=== PATIENT | female | born 1930 | race Caucasian/White ===

== ENCOUNTER 2017-03-17 10:19 | Inpatient (IN) | payer MEDICARE ==
[~2017-03-17] VITALS: Ht 167.6 cm; Wt 59.0 kg
[~2017-03-17 10:19] MED LIST: ACET-2605 PO; ACET-868 PO; ATOR20TA PO; BISA-79 GT; MELA1TAB25 PO; METO25TA3 PO; MIRT7.5T10 PO; NA P133E RC; ONDA4TAB5 PO; PANT40TA2 PO; SENN-18 PO; TRAM50TA2 PO
[2017-03-17 11:19] LABS: BASOPHILS # (AUTO) 0.1 /CMM (0.0-0.2); EOSINOPHILS # (AUTO) 0.1 /CMM (0.0-0.7); EOSINOPHILS % (AUTO) 2.3 % (0.0-6.0); HEMATOCRIT 45 % (33-45); HEMOGLOBIN 14.7 g/dL (11.5-14.8); LYMPHOCYTES # (AUTO) 1.2 /CMM (0.8-4.8); LYMPHOCYTES % (AUTO) 20.8 % (20.0-44.0); MEAN CORPUSCULAR HEMOGLOBIN 30 PG (26.0-33.0); MEAN CORPUSCULAR HGB CONC 33 g/dl (31.0-36.0); MEAN CORPUSCULAR VOLUME 92 fL (82-100); MONOCYTES # (AUTO) 0.8 /CMM (0.1-1.30); NEUTROPHILS # (AUTO) 3.3 /CMM (1.8-8.9); NEUTROPHILS % (AUTO) 61.9 % (43.0-81.0); PLATELET COUNT (AUTO) 166 /CMM (150-450); RDW COEFFICIENT OF VARIATION 12.8 (11.5-15.0); RED BLOOD CELL COUNT(AUTO) 4.88 MIL/uL (4.0-5.2); WHITE BLOOD COUNT (AUTO) 5.5 K/uL (4.3-11.0)
[2017-03-17] MEDS ORDERED: IV SET PRIMARY PUMP SET 1 EA INFUS.SET MC ONE ×2 (11:28→18:12)
[2017-03-17] MEDS ORDERED: IV NS 0.9% 1,000 ML ONE (11:28)
[2017-03-17 11:29] LABS: CALCIUM, SERUM 9.1 mg/dL (8.5-10.1); CARBON DIOXIDE 27 mmol/L (21-32); CHLORIDE 104 mmol/L (98-107); GLUCOSE 89 mg/dL (74-106); POTASSIUM 4.8 mmol/L (3.5-5.1); SODIUM SERUM 137 mmol/L (136-145); UREA NITROGEN, BLOOD 20 mg/dL (7-18)
[2017-03-17] MEDS ORDERED: IPRATROPIUM NEB FS 0.5 MG/2.5 ML AMPUL.NEB NEB ONE (11:30)
[2017-03-17] MEDS ORDERED: ALBUTEROL FS 2.5 MG/3 ML VIAL.NEB NEB ONE (11:30)
[2017-03-17] MEDS ORDERED: IV NS 0.9% 1,000 ML BAG IV ONE (11:30)
[2017-03-17 11:40] LABS: ALANINE AMINOTRANSFERASE 16 U/L (12-78); ALBUMIN 3.4 g/dL (3.4-5.0); ALKALINE PHOSPHATASE 79 U/L (46-116); ASPARTATE AMINOTRANSFERASE 18 U/L (15-37); B-TYPE NATRIURETIC PEPTIDE 570 PG/ML (0-125); BILIRUBIN,DIRECT 0.2 mg/dL (0.0-0.2); BILIRUBIN,TOTAL 0.7 mg/dL (0.2-1.0); TOTAL PROTEIN, SERUM 7.1 g/dL (6.4-8.2)
[2017-03-17 11:41] LABS: TROPONIN I 0.067 ng/mL (0.00-0.056)
[2017-03-17] MEDS ORDERED: IPRATROPIUM NEB FS 0.5 MG/2.5 ML AMPUL.NEB ONE (11:43)
[2017-03-17] MEDS ORDERED: ALBUTEROL FS 2.5 MG/0.5 ML VIAL.NEB ONE (11:43)
[2017-03-17] MEDS ORDERED: ASPIRIN 325 MG TABLET PO ONE (14:30)
[2017-03-17] MEDS ORDERED: FUROSEMIDE 40 MG/4 ML VIAL IV ONE (14:30)
[2017-03-17] MEDS ORDERED: FUROSEMIDE 40 MG/4 ML VIAL ONE (14:37)
[2017-03-17] MEDS ORDERED: ASPIRIN 325 MG TABLET ONE (14:37)
[2017-03-17 15:00] VITALS: BP 131/60
[2017-03-17] MEDS ORDERED: IPRATROPIUM NEB FS 0.5 MG/2.5 ML AMPUL.NEB NEB PRN (16:00)
[2017-03-17] MEDS ORDERED: NA PHOS,M-B/NA PHOS,DI-BA 1 EA ENEMA RC PRN ×2 (16:00→16:16)
[2017-03-17] MEDS ORDERED: ACETAMINOPHEN 325 MG TABLET PO PRN (16:00)
[2017-03-17] MEDS ORDERED: CEFTRIAXONE 1 G in IV D5W 50 ML IV SCH (16:00)
[2017-03-17] MEDS ORDERED: ACETAMINOPHEN ES 500 MG TABLET PO PRN (16:00)
[2017-03-17] MEDS ORDERED: TRAMADOL HCL 50 MG TABLET PO PRN (16:00)
[2017-03-17] MEDS ORDERED: CEFTRIAXONE 1 G in IV NS 0.9% 50 ML IV SCH (16:27)
[2017-03-17] MEDS ORDERED: ONDANSETRON 4 MG TAB.RAPDIS PO PRN (16:30)
[2017-03-17] MEDS ORDERED: SENNOSIDES 8.6 MG TABLET PO SCH (17:00)
[2017-03-17] MEDS ORDERED: IV NS 0.9% 250 ML IV ONE (18:12)
[2017-03-17] MEDS ORDERED: SECONDARY IV SET 1 EA INFUS.SET MC ONE (18:12)
[2017-03-17] MEDS: CEFTRIAXONE 1 G in IV NS 0.9% 50 ML IV SCH (18:25)
[2017-03-17 20:00] VITALS: BP 148/75
[2017-03-17] MEDS: ALBUTEROL HALF STRENGTH 1.25 MG/3 ML VIAL.NEB NEB SCH ×2 (20:15→23:30)
[2017-03-17] MEDS: IPRATROPIUM NEB FS 0.5 MG/2.5 ML AMPUL.NEB NEB SCH ×2 (20:15→23:30)
[2017-03-17] MEDS: MIRTAZAPINE 15 MG TABLET PO SCH (21:40)
[2017-03-17] MEDS: SENNOSIDES 8.6 MG TABLET PO SCH (21:42)
[2017-03-17] MEDS: HEPARIN SODIUM, PORCINE 5000 UNITS/1 ML VIAL SQ SCH (21:42)
[2017-03-17] MEDS ORDERED: Medication Not On Formulary EA (Melatonin/Pyridoxine HCl (B6) (Melatonin 10 mg Tablet) 1 PO SCH (22:00)
[2017-03-18] VITALS: BP 142/69
[2017-03-18] MEDS: ALBUTEROL HALF STRENGTH 1.25 MG/3 ML VIAL.NEB NEB SCH ×3 (02:34→10:55)
[2017-03-18] MEDS: IPRATROPIUM NEB FS 0.5 MG/2.5 ML AMPUL.NEB NEB SCH ×4 (02:34→20:19)
[2017-03-18 04:00] VITALS: BP 119/60
[2017-03-18 06:28] LABS: BASOPHILS % (AUTO) 0.2 % (0.0-2.0); EOSINOPHILS # (AUTO) 0.2 /CMM (0.0-0.7); EOSINOPHILS % (AUTO) 3.1 % (0.0-6.0); HEMATOCRIT 42 % (33-45); HEMOGLOBIN 14.2 g/dL (11.5-14.8); LYMPHOCYTES # (AUTO) 1.7 /CMM (0.8-4.8); LYMPHOCYTES % (AUTO) 29.8 % (20.0-44.0); MEAN CORPUSCULAR HEMOGLOBIN 31 PG (26.0-33.0); MEAN CORPUSCULAR HGB CONC 34 g/dl (31.0-36.0); MEAN CORPUSCULAR VOLUME 91 fL (82-100); MONOCYTES # (AUTO) 0.7 /CMM (0.1-1.30); MONOCYTES % (AUTO) 11.3 % (2.0-12.0); NEUTROPHILS # (AUTO) 3.3 /CMM (1.8-8.9); NEUTROPHILS % (AUTO) 55.6 % (43.0-81.0); PLATELET COUNT (AUTO) 129 /CMM (150-450); RDW COEFFICIENT OF VARIATION 13.2 (11.5-15.0); RED BLOOD CELL COUNT(AUTO) 4.57 MIL/uL (4.0-5.2); WHITE BLOOD COUNT (AUTO) 5.9 K/uL (4.3-11.0)
[2017-03-18 06:58] LABS: CALCIUM, SERUM 8.7 mg/dL (8.5-10.1); CARBON DIOXIDE 30 mmol/L (21-32); CHLORIDE 102 mmol/L (98-107); CREATININE 0.8 mg/dL (0.6-1.3); GLUCOSE 111 mg/dL (74-106); POTASSIUM 3.9 mmol/L (3.5-5.1); SODIUM SERUM 138 mmol/L (136-145); UREA NITROGEN, BLOOD 15 mg/dL (7-18)
[2017-03-18 08:00] VITALS: BP 131/72
[2017-03-18] MEDS: BISACODYL (5 MG) 5 MG TABLET.DR GT SCH ×2 (08:48→18:31)
[2017-03-18] MEDS: METOPROLOL SUCCINATE 25 MG TAB.SR.24H PO SCH (08:48)
[2017-03-18] MEDS: PANTOPRAZOLE 40 MG TABLET.DR PO SCH (08:48)
[2017-03-18] MEDS: HEPARIN SODIUM, PORCINE 5000 UNITS/1 ML VIAL SQ SCH ×2 (08:49→21:28)
[2017-03-18] MEDS ORDERED: DILTIAZEM HCL 30 MG TABLET PO SCH (09:00)
[2017-03-18] MEDS ORDERED: ATORVASTATIN 10 MG TABLET PO SCH (09:00)
[2017-03-18 12:00] VITALS: BP 103/56
[2017-03-18] MEDS: predniSONE 20 MG TABLET PO SCH (14:10)
[2017-03-18] MEDS: DILTIAZEM HCL 30 MG TABLET PO SCH (14:14)
[2017-03-18 15:48] VITALS: BP 117/57
[2017-03-18] MEDS: CEFTRIAXONE 1 G in IV NS 0.9% 50 ML IV SCH (17:01)
[2017-03-18] MEDS: ALBUTEROL HALF STRENGTH 1.25 MG/3 ML VIAL.NEB NEB PRN ×2 (17:02→20:19)
[2017-03-18] MEDS: GUAIFENESIN 300 MG/15 ML UDC PO PRN (18:26)
[2017-03-18 20:00] VITALS: BP 112/53
[2017-03-18] MEDS: SENNOSIDES 8.6 MG TABLET PO SCH (21:28)
[2017-03-18] MEDS: ATORVASTATIN 10 MG TABLET PO SCH (21:28)
[2017-03-18] MEDS: MIRTAZAPINE 15 MG TABLET PO SCH (21:29)
[2017-03-19] VITALS: BP 114/56
[2017-03-19] MEDS: IPRATROPIUM NEB FS 0.5 MG/2.5 ML AMPUL.NEB NEB SCH ×3 (01:30→12:49)
[2017-03-19 04:00] VITALS: BP 133/67
[2017-03-19 08:00] VITALS: BP 128/60
[2017-03-19] MEDS: BISACODYL (5 MG) 5 MG TABLET.DR GT SCH (10:40)
[2017-03-19] MEDS: DILTIAZEM HCL 30 MG TABLET PO SCH (10:40)
[2017-03-19] MEDS: predniSONE 20 MG TABLET PO SCH (10:40)
[2017-03-19] MEDS: PANTOPRAZOLE 40 MG TABLET.DR PO SCH (10:43)
[2017-03-19] MEDS: METOPROLOL SUCCINATE 25 MG TAB.SR.24H PO SCH (10:48)
[2017-03-19] MEDS: HEPARIN SODIUM, PORCINE 5000 UNITS/1 ML VIAL SQ SCH ×2 (10:51→21:03)
[2017-03-19 16:00] VITALS: BP 135/62
[2017-03-19] MEDS ORDERED: CEFTRIAXONE 1 G in IV D5W 50 ML IV SCH (18:00)
[2017-03-19 20:07] VITALS: BP 142/78
[2017-03-19] MEDS: MIRTAZAPINE 15 MG TABLET PO SCH (21:02)
[2017-03-19] MEDS: ATORVASTATIN 10 MG TABLET PO SCH (21:02)
[2017-03-19] MEDS: SENNOSIDES 8.6 MG TABLET PO SCH (21:02)
[2017-03-20 08:00] VITALS: BP 158/67
[2017-03-20] MEDS: PANTOPRAZOLE 40 MG TABLET.DR PO SCH (09:05)
[2017-03-20] MEDS: predniSONE 20 MG TABLET PO SCH (09:05)
[2017-03-20] MEDS: METOPROLOL SUCCINATE 25 MG TAB.SR.24H PO SCH (09:06)
[2017-03-20] MEDS: BISACODYL (5 MG) 5 MG TABLET.DR GT SCH (09:06)
[2017-03-20] MEDS: DILTIAZEM HCL 30 MG TABLET PO SCH (09:06)
[2017-03-20] MEDS: HEPARIN SODIUM, PORCINE 5000 UNITS/1 ML VIAL SQ SCH ×2 (09:07→21:48)
[2017-03-20] MEDS ORDERED: IPRATROPIUM NEB FS 0.5 MG/2.5 ML AMPUL.NEB NEB PRN (12:00)
[2017-03-20] MEDS ORDERED: ALBUTEROL HALF STRENGTH 1.25 MG/3 ML VIAL.NEB NEB PRN (13:00)
[2017-03-20] MEDS: GUAIFENESIN 300 MG/15 ML UDC PO PRN (13:27)
[2017-03-20] MEDS ORDERED: IPRATROPIUM NEB FS 0.5 MG/2.5 ML AMPUL.NEB NEB SCH (13:30)
[2017-03-20] MEDS ORDERED: HYDROCODONE BIT/HOMATROPINE 5 ML UDC PO PRN (15:30)
[2017-03-20 16:00] VITALS: BP 136/72
[2017-03-20] MEDS ORDERED: ALBUTEROL HALF STRENGTH 1.25 MG/3 ML VIAL.NEB NEB SCH (19:30)
[2017-03-20 20:00] VITALS: BP 134/66
[2017-03-20] MEDS: MIRTAZAPINE 15 MG TABLET PO SCH (21:47)
[2017-03-20] MEDS: SULFAMETH/TRIMETH 800/160 MG 1 UDTAB TABLET PO SCH (21:47)
[2017-03-20] MEDS: SENNOSIDES 8.6 MG TABLET PO SCH (21:47)
[2017-03-20] MEDS: ATORVASTATIN 10 MG TABLET PO SCH (21:48)
[2017-03-21 08:00] VITALS: BP 142/75
[2017-03-21] MEDS: HEPARIN SODIUM, PORCINE 5000 UNITS/1 ML VIAL SQ SCH (09:00)
[2017-03-21] MEDS: predniSONE 20 MG TABLET PO SCH (09:56)
[2017-03-21] MEDS: PANTOPRAZOLE 40 MG TABLET.DR PO SCH (09:57)
[2017-03-21] MEDS: DILTIAZEM HCL 30 MG TABLET PO SCH (09:57)
[2017-03-21] MEDS: BISACODYL (5 MG) 5 MG TABLET.DR GT SCH (09:57)
[2017-03-21] MEDS: SULFAMETH/TRIMETH 800/160 MG 1 UDTAB TABLET PO SCH (09:57)
[2017-03-21] MEDS: METOPROLOL SUCCINATE 25 MG TAB.SR.24H PO SCH (09:58)
[2017-03-21 13:09] VITALS: BP 139/64
== END 2017-03-21 15:30 | disposition home or self-care (01) | DRG 291 ==
LOC: ER 10:20 → TELE 15:39 → MED 03-19 10:50
PROVIDERS: ADMIT Internal Medicine; ATTEND Internal Medicine
DX: I11.0 Hypertensive heart disease with heart failure (principal); J15.9 Unspecified bacterial pneumonia; J12.9 Viral pneumonia, unspecified; I48.0 Paroxysmal atrial fibrillation; F03.90 Unspecified dementia, unspecified severity, without behavioral disturbance, psychotic disturbance, mood disturbance, and anxiety; I50.31 Acute diastolic (congestive) heart failure; K21.9 Gastro-esophageal reflux disease without esophagitis; J20.9 Acute bronchitis, unspecified; Z83.3 Family history of diabetes mellitus; Z79.899 Other long term (current) drug therapy; M81.0 Age-related osteoporosis without current pathological fracture; I25.10 Atherosclerotic heart disease of native coronary artery without angina pectoris; F32.9 Major depressive disorder, single episode, unspecified; Z96.649 Presence of unspecified artificial hip joint; R78.89 Finding of other specified substances, not normally found in blood; I87.2 Venous insufficiency (chronic) (peripheral); Z87.891 Personal history of nicotine dependence
CPT/HCPCS: 36415; 71020-TC; 71250-TC; 80048-TC; 80076-TC; 83880; 84484-TC; 85025-TC; 87040-TC; 87081-TC; 93307-TC; 94799-TC; 97001-TC; A4216; A4606; J0696; J1644; J1940; J7030; J7050; J7060; Z7610

== ENCOUNTER 2017-12-03 12:34 | Inpatient (IN) | payer MEDICARE ==
[~2017-12-03] VITALS: Ht 167.6 cm; Wt 69.9 kg
--- NOTE | 2017-12-03 12:45 | NUR ---
PRESENTS TO ER C/O LACERATION TO L EYEBROW S/P GLF, DENIES LOC, NECK, OR BACK PAIN. A/OX 4. BREATHING EVEN AND UNLABORED. NO SOB. VITALS STABLE. SAFETY AND COMFORT MEASURES IN PLACE. AWAITING MD ORDERS.
[2017-12-03] MEDS ORDERED: LIDOCAINE 1% INJ 50 ML MDV IJ ONE (13:00)
[2017-12-03] MEDS ORDERED: LIDOCAINE HCL/PF 1% 30 ML SDV ONE (13:17)
--- NOTE | 2017-12-03 13:19 | NUR ---
PATIENT SET UP FOR SUTURES PER ESSENCE DIAZ.
--- NOTE | 2017-12-03 13:38 | NUR ---
C-COLLAR APPLIED PER MD ORDERS.
--- NOTE | 2017-12-03 13:41 | NUR ---
PATIENT TAKEN TO CT VIA STRETCHER.
--- NOTE | 2017-12-03 13:55 | NUR ---
PATIENT RETURNED FROM CT IN STABLE CONDITION.
--- NOTE | 2017-12-03 15:10 | NUR ---
PATIENT TAKEN TO MRI VIA STRETCHER.
--- NOTE | 2017-12-03 16:03 | NUR ---
PATIENT RETURNED FROM MRI IN STABLE CONDITION.
--- NOTE | 2017-12-03 18:05 | NUR ---
NEW IV STARTED ON RAC, 20 G. BLOOD DRAWN AND SENT TO LAB PER MD ORDERS.
[2017-12-03 18:15] LABS: BASOPHILS # (AUTO) 0.2 /CMM (0.0-0.2); BASOPHILS % (AUTO) 2.5 % (0.0-2.0); EOSINOPHILS # (AUTO) 0.1 /CMM (0.0-0.7); EOSINOPHILS % (AUTO) 0.7 % (0.0-6.0); HEMATOCRIT 45 % (33-45); HEMOGLOBIN 15.5 g/dL (11.5-14.8); LYMPHOCYTES # (AUTO) 1.4 /CMM (0.8-4.8); LYMPHOCYTES % (AUTO) 15.5 % (20.0-44.0); MEAN CORPUSCULAR HEMOGLOBIN 31 PG (26.0-33.0); MEAN CORPUSCULAR HGB CONC 35 g/dl (31.0-36.0); MEAN CORPUSCULAR VOLUME 89 fL (82-100); MONOCYTES # (AUTO) 0.6 /CMM (0.1-1.30); MONOCYTES % (AUTO) 6.1 % (2.0-12.0); NEUTROPHILS # (AUTO) 6.8 /CMM (1.8-8.9); NEUTROPHILS % (AUTO) 75.2 % (43.0-81.0); PLATELET COUNT (AUTO) 152 /CMM (150-450); RDW COEFFICIENT OF VARIATION 12.6 (11.5-15.0); RED BLOOD CELL COUNT(AUTO) 4.98 MIL/uL (4.0-5.2); WHITE BLOOD COUNT (AUTO) 9.1 K/uL (4.3-11.0)
[2017-12-03 18:25] LABS: CALCIUM, SERUM 9.2 mg/dL (8.5-10.1); CARBON DIOXIDE 26 mmol/L (21-32); CHLORIDE 104 mmol/L (98-107); CREATININE 0.7 mg/dL (0.6-1.3); GLUCOSE 108 mg/dL (74-106); SODIUM SERUM 138 mmol/L (136-145); UREA NITROGEN, BLOOD 18 mg/dL (7-18)
[2017-12-03 18:37] LABS: INR 0.96 (0.85-1.15)
[2017-12-03] MEDS ORDERED: VIT1CAPS9 PO (18:49)
[2017-12-03] MEDS ORDERED: PARO10TA86 PO (18:49)
[2017-12-03] MEDS ORDERED: NAPR220T66 PO (18:49)
[2017-12-03] MEDS ORDERED: CHOL100044 PO (18:49)
[2017-12-03] MEDS ORDERED: DILT120T14 PO (18:49)
[2017-12-03] MEDS ORDERED: UBID100C13 PO (18:49)
[2017-12-03] MEDS ORDERED: CYAN500T4 PO (18:49)
[2017-12-03] MEDS ORDERED: SIME125T3 PO (18:49)
--- NOTE | 2017-12-03 19:04 | NUR ---
CALLED 'S OFFICE, CAMILLE GARCIA NP ROLL PRESS OPERATOR, LEFT MESSAGE ON VOICEMAIL
--- NOTE | 2017-12-03 19:36 | NUR ---
REPORT GIVEN TO CORRIE TSE FOR RESHMA.
--- NOTE | 2017-12-03 19:49 | NUR ---
ASSUMED CARE OF PT
--- NOTE | 2017-12-03 20:06 | NUR ---
REPORT GIVEN TO CARMENCITA TANG
[2017-12-03 20:21] VITALS: BP 138/73
--- NOTE | 2017-12-03 20:21 | NUR ---
MS RN NOTES RECEIVED PT FROM ER IN STABLE CONDITION, PT IS AWAKE, A/O X 4. NO DISTRESS, NOR SOB NOTED. RESPIRATION IS EVEN AND UNLABORED. PT WITH NO C/O PAIN OR DISCOMFORT AT THIS TIME. IV SITE ON RAC G # 20 INTACT AND PATENT, NO S/S OF INFILTRATION NOTED. SAFETY PRECAUTIONS OBSERVED. C COLLAR IN PLACE. ALL NEEDS ATTENDED AND MET. BODY CHECK DONE. KEPT COMFORTABLE. CALL LIGHT WITHIN REACH. WILL CONTINUE TO MONITOR. WILL CALL JOSE OBRIEN FOR ADMISSION ORDERS.
--- NOTE | 2017-12-03 21:00 | NUR ---
PLACED A CALL TO JOSE OBRIEN FOR ADMISSION ORDERS, AWAITING FOR CALL BACK.
--- NOTE | 2017-12-03 22:32 | NUR ---
PLACED A CALL TO JOSE OBRIEN, RECEIVED ADMISSION ORDERS , AND PER RESERVATION CLERK TO CONTINUE HOME MEDS, NOTED AND CARRIED OUT.
[2017-12-03] MEDS ORDERED: ATORVASTATIN 10 MG TABLET PO SCH (23:00)
[2017-12-03] MEDS ORDERED: MORPHINE SULFATE INJ 4 MG/ML DISP.SYRIN IV PRN (23:00)
[2017-12-03] MEDS ORDERED: SIMETHICONE 80 MG TAB.CHEW PO PRN (23:00)
[2017-12-03] MEDS ORDERED: PAROXETINE HCL 10 MG TABLET PO SCH (23:00)
[2017-12-03] MEDS: SENNOSIDES 8.6 MG TABLET PO SCH (23:15)
[2017-12-03] MEDS: ACETAMINOPHEN 325 MG TABLET PO PRN (23:17)
--- NOTE | 2017-12-03 23:42 | NUR ---
RECEIVED AN ORDER FROM JOSE OBRIEN TO INSERT VIERA CATHETER, NOTED AND CARRIED OUT. PER JOSE OBRIEN NO ORTHO CONSULT AT THIS TIME, PT NEEDS TO BE SEEN BY NEUROSURGEON TO ORDER A SPECIAL BRACE.
[2017-12-04] MEDS: ACETAMINOPHEN 325 MG TABLET PO PRN ×3 (05:41→21:12)
--- NOTE | 2017-12-04 06:49 | NUR ---
MS RN NOTES PT IN BED, RESTING COMFORTABLY. AROUSES EASILY, A/O X 4. NO DISTRESS, NOR SOB NOTED. RESPIRATION IS EVEN AND UNLABORED. PT WITH NO C/O PAIN OR DISCOMFORT AT THIS TIME. IV SITE ON RAC G # 20 INTACT AND PATENT, NO S/S OF INFILTRATION NOTED. SAFETY PRECAUTIONS OBSERVED. C COLLAR IN PLACE. ALL NEEDS ATTENDED AND MET. KEPT COMFORTABLE. CALL LIGHT WITHIN REACH. WILL ENDORSE TO NEXT SHIFT FOR RESHMA.
--- NOTE | 2017-12-04 07:30 | NUR ---
AM RN NOTE Received patient awake lying in her bed. Resp even and non-labored. C Collar in place. HL intact and patent. F/C intact and draining with yellow colored urine. Bed in low locked position. Will continue to monitor. Call light with in reach.
[2017-12-04 08:00] VITALS: BP 154/73
[2017-12-04] MEDS ORDERED: SIMETHICONE 80 MG TAB.CHEW PO PRN (09:30)
[2017-12-04] MEDS ORDERED: NAPROXEN 250 MG TABLET PO PRN (09:30)
[2017-12-04] MEDS: MULTIVITAMIN/LUTEIN/MINERALS 1 TAB PO SCH (10:49)
[2017-12-04] MEDS: DILTIAZEM HCL CD 120 MG PO SCH (10:50)
[2017-12-04] MEDS: CYANOCOBALAMIN 500 MCG TABLET PO SCH (10:50)
[2017-12-04] MEDS: CHOLECALCIFEROL 1,000 UNIT TABLET (VIT D3) PO SCH (10:50)
[2017-12-04] MEDS: METOPROLOL SUCCINATE 25 MG TAB.SR.24H PO SCH (10:50)
--- NOTE | 2017-12-04 15:20 | NUR ---
AM RN NOTE Pain re-assessed with 0/10 results.
[2017-12-04 16:00] VITALS: BP 146/70
--- NOTE | 2017-12-04 16:30 | NUR ---
AM RN NOTE Called Dr. James barrow and left msg in his exchange that his pt admitted to the unit.
[2017-12-04] MEDS: PAROXETINE HCL 10 MG TABLET PO SCH (17:17)
--- NOTE | 2017-12-04 17:45 | NUR ---
AM RN NOTE Called Dr. Ramirez left msg again.
--- NOTE | 2017-12-04 17:52 | NUR ---
AM RN NOTE Received call from Dr. James barrow made aware about pt admitted to the unit. Dr. James barrow also made aware that pt occ c/o having horizontal or vertical vision problems after the fall since yesterday. Pt denies any vision loss or double vision. Per Dr. James barrow this is not new and pt does have issues with her vision in past and NNO given by him at this time. Will continue to monitor. Pt denies any pain or vision problem at this time. C-collar in place. Addendum: 12/04/17 at 1807 by EVELINA MENCHACA RN ADD TO ABOVE ORDER Dr. Ramirez didn't order any physician consult orders at this time.
--- NOTE | 2017-12-04 18:24 | NUR ---
AM RN NOTE Pt resting in her bed, denies any pain at this time. Will endorse care to next shift.
--- NOTE | 2017-12-04 19:30 | NUR ---
MSRN FULLY AWAKE, WITH ASPEN CERVICAL COLLAR IN PLACE. STATES HAS SLIGHT HEADACHE AND WILL TAKE TYLENOL AFTER LATE DINNER. ASSISTED ON DINNER BY MANAGER MOTOR. ATE 30% ONLY STATED UNCOMFORTABLE EATING WITH THE COLLAR. ADJUSTED PER PATIENTS' COMFORT.NO SOB, ADMITTS GETTING ANXIOUS. ELEVATED BP, WILL RECHECK BP . VIERA TO GRAVITY FAIR AMOUNT OF URINE OUTPUT. ALL NEEDS ATTENDED, CLOSELY WATCHED. CALL LIGHT USE REVIEWED WITH PATIENT WELL UNDERSTOOD.
[2017-12-04] MEDS: ATORVASTATIN 10 MG TABLET PO SCH (21:13)
[2017-12-04] MEDS: SENNOSIDES 8.6 MG TABLET PO SCH (21:13)
[2017-12-04 23:58] VITALS: BP 146/59
--- NOTE | 2017-12-05 00:42 | NUR ---
MSRN SLEEPING APPEARS COMFORTABLE
--- NOTE | 2017-12-05 01:18 | NUR ---
MSRN ASSISTED TO BSC, HAD SMALL BM. UNSTEADY GAIT. DENIES DIZZINESS . 02 MAINTAINED. HFR.
[2017-12-05] MEDS: ACETAMINOPHEN 325 MG TABLET PO PRN ×3 (03:23→21:42)
--- NOTE | 2017-12-05 07:01 | NUR ---
MSRN SLEEPING AT THIS TIME.
[2017-12-05 08:00] VITALS: BP 139/78
[2017-12-05] MEDS: CHOLECALCIFEROL 1,000 UNIT TABLET (VIT D3) PO SCH (09:47)
[2017-12-05] MEDS: METOPROLOL SUCCINATE 25 MG TAB.SR.24H PO SCH (09:47)
[2017-12-05] MEDS: MULTIVITAMIN/LUTEIN/MINERALS 1 TAB PO SCH (09:48)
[2017-12-05] MEDS: CYANOCOBALAMIN 500 MCG TABLET PO SCH (09:48)
[2017-12-05] MEDS: DILTIAZEM HCL CD 120 MG PO SCH (09:49)
--- NOTE | 2017-12-05 14:00 | NUR ---
RN NOTES: PER DR MENA, ORDER AN ASPEN ORTHOSIS CERVICAL COLLAR. CALLED [facility]. THEY WILL DELIVER. PER DR MENA, OK FOR PATIENT TO AMBULATE AND USE BEDSIDE COMMODE. HE ALSO ORDERED PHYSICAL THERAPY TO ASSESS PATIENT
--- NOTE | 2017-12-05 15:54 | NUR ---
RN NOTES: PER DR HARRINGTON DISCONTINUE VIERA CATHETER. ALSO, PER DR HARRINGTON, NO ANTICOAGULANTS AND NO DVT PUMPS
[2017-12-05 16:00] VITALS: BP 130/71
[2017-12-05] MEDS: PAROXETINE HCL 10 MG TABLET PO SCH (17:08)
--- NOTE | 2017-12-05 19:20 | NUR ---
RN NOTES: PATIENT RESTING IN BED. AOX4. NONLABORED BREATHING ON 2L NASAL CANNULA. DENIES PAIN, DENIES HEADACHES, DENIES CHEST PAIN, IV SITE ON RIGHT AC PATENT AND INTACT. PATIENT AMBULATED TO BEDSIDE COMMODE PER DR HUTCHISON ORDERS. WAS ABLE TO URINATE AFTER VIERA REMOVAL THAT WAS ORDERED BY DR HARRINGTON. TOLERATED REMOVAL WELL. PATIENT KEPT CLEAN AND DRY THROUGHOUT SHIFT . PATIENT REMAINED PERRLA DURING SHIFT, DENIED DIFFICULTY IN VISION, NO ONSET OF WEAKNESS, AND DENIED VERTIGO. NEW ASPEN ORTHOSIS BRACE ORDERED AND HAD TRAINED PROFESSIONAL ADJUST THE BRACE FOR THE PATIENT. BRACE ORDERED FROM [email or web address]. ABRASION ON LEFT ARM CLEANSED WITH NS AND COVERED. ENDORSED TO NEXT SHIFT
--- NOTE | 2017-12-05 19:25 | NUR ---
MS/RN OPENING NOTES PT RECEIVED AWAKE, SITTING UP IN BED. A/OX4. ON 2L O2 VIA NC, BREATHING EVEN AND UNLABORED. DENIES SOB OR PAIN AT THIS TIME. CERVICAL COLLAR ON, TO REMAIN ON AT ALL TIMES. IV TO LAC PATENT AND INTACT. BED IN LOW/LOCKED POSITION WITH CALL LIGHT IN REACH. SIDE RAILS UPX2. WILL CONTINUE TO MONITOR
[2017-12-05 20:00] VITALS: BP 143/61
[2017-12-05] MEDS: SENNOSIDES 8.6 MG TABLET PO SCH (21:35)
[2017-12-05] MEDS: ATORVASTATIN 10 MG TABLET PO SCH (21:35)
--- NOTE | 2017-12-06 06:50 | NUR ---
MS/RN CLOSING NOTES PT ASLEEP, EASILY AROUSABLE TO NAME. REMAINS ON 2L O2 VIA NC, BREATHING EVEN AND UNLABORED. DENIES SOB OR PAIN AT THIS TIME. PERRLA MAINTAINED DURING SHIFT. NO WEAKNESS, DIZZINESS OR EPISODES OF DISTORTED/HORIZONTAL VISION. CERVICAL COLLAR REMAINED ON AT ALL TIMES. IV TO RAC PATENT AND INTACT. ASSISTED PT TO BSC PRN. WOUND CARE PROVIDED. BED IN LOW/LOCKED POSITION WITH CALL LIGHT IN REACH. SIDE RAILS UPX2. NO SIGNIFICANT CHANGES OVERNIGHT. KEPT PT COMFORTABLE DURING SHIFT. ALL NEEDS MET. WILL ENDORSE TO DAY SHIFT RN.
[2017-12-06] MEDS ORDERED: MORPHINE SULFATE INJ 4 MG/ML DISP.SYRIN IV PRN (07:30)
--- NOTE | 2017-12-06 07:30 | NUR ---
MS/RN Patient received Patient received from mine shifter. Denies pain or discomfort at this time. remains with neck brace until reviewed by MD. Call light within reach, will continue to monitor and ensure safety.
[2017-12-06 08:00] VITALS: BP 140/70
[2017-12-06] MEDS: CYANOCOBALAMIN 500 MCG TABLET PO SCH (08:18)
[2017-12-06] MEDS: CHOLECALCIFEROL 1,000 UNIT TABLET (VIT D3) PO SCH (08:18)
[2017-12-06] MEDS: MULTIVITAMIN/LUTEIN/MINERALS 1 TAB PO SCH (08:18)
[2017-12-06] MEDS: DILTIAZEM HCL CD 120 MG PO SCH (08:19)
[2017-12-06] MEDS: METOPROLOL SUCCINATE 25 MG TAB.SR.24H PO SCH (08:19)
--- NOTE | 2017-12-06 08:31 | NUR ---
MS/RN Medications Morning medications administered as ordered, no problems swallowing.
--- NOTE | 2017-12-06 10:00 | NUR ---
MS/RN S/B Elidia CARDOZA Seen by Elidia sawyer ordered, patient to remain with aspen collar at all times.
[2017-12-06] MEDS: ACETAMINOPHEN 325 MG TABLET PO PRN ×3 (10:03→20:49)
--- NOTE | 2017-12-06 11:30 | NUR ---
MS/RN S/B Dr Stratton Seen by Dr Stratton - bedside debridement of left upper arm at bedside. New wound care orders given and carried out.
--- NOTE | 2017-12-06 11:36 | NUR ---
WOUND CARE CONSULT: PT PRESENTS WITH LARGE SKIN TEAR TO LEFT ARM, SUTURED LACERATION TO LEFT EYEBROW AREA AND DRY ABRASION TO RT SIDE OF HEAD. RECOMMENDATIONS MADE FOR WOUND CARE AND SKIN PROTECTION. DISCUSSED WITH NURSING STAFF. WILL SEE PRN. BOOTH IN AGREEMENT WITH PLAN OF CARE. Addendum: 12/06/17 at 1141 by KAYLENE RAMIREZ WNDNU Amended: Links added.
--- NOTE | 2017-12-06 14:58 | NUR ---
MS/RN S/B Dr Ramirez Seen by Dr Ramirez - MRA of brain ordered. Consent form signed and checklist completed. Dr Ramirez called to clarify order as to being with or without IV contrast. Per MD, that decision will be left to the desecration of the radiologist.
[2017-12-06 16:00] VITALS: BP 128/62
--- NOTE | 2017-12-06 16:00 | NUR ---
MS/RN S/B PT Seen by PT - able to ambulate 200 feet using FWW, safe to ambulate with nursing.
[2017-12-06] MEDS: PAROXETINE HCL 10 MG TABLET PO SCH (16:47)
[2017-12-06] MEDS: NEOMY SULF/BACITRAC ZN/POLY 15 GM TUBE TP SCH (16:47)
--- NOTE | 2017-12-06 19:30 | NUR ---
RN NOTE; RECEIVED PT IN BED AWAKE AND ALERT. BREATHING EVENLY. NO C/O PAIN OR DISCOMFORT AT THIS TIME. NECK COLLAR IN PLACE. L FOREHEAD LACERATION W/ INTACT STITCHES. NO DRAINAGE. NO S/S OF INFX. NEEDS ATTENDED. BED LOW LOCKED. CALL LIGHT WITHIN REACH. WILL CONT TO MONITOR ,
[2017-12-06 20:00] VITALS: BP_SYST 107; BP_SYST 123; BP_SYST 126; BP_DIAS 52; BP_DIAS 55; BP_DIAS 63
[2017-12-06] MEDS: SENNOSIDES 8.6 MG TABLET PO SCH (20:49)
[2017-12-06] MEDS: ATORVASTATIN 10 MG TABLET PO SCH (20:49)
--- NOTE | 2017-12-06 20:53 | NUR ---
TYLENOL 650MG GIVEN ORDERED FOR C/O HEAD AND NECK PAIN. PT ALSO REQUESTED TO TAKE HER NIGHT MEDICATIONS EARLY SO SHE CAN REST AND NOT TO BE DISTURBED.
[2017-12-07] MEDS: ACETAMINOPHEN 325 MG TABLET PO PRN ×3 (01:43→21:23)
--- NOTE | 2017-12-07 01:46 | NUR ---
TYLENOL GIVEN FOR C/O HEADACHE. WILL CONT TO MONITOR
--- NOTE | 2017-12-07 06:44 | NUR ---
PT IN BED SLEEPING, W/ NO C/O PAIN OR DISCOMFORT AT THIS TIME. NO S/S OF STROKE OR TIA NOTED. NO FACIAL DROOP OR SLURRED SPEECH. NO ACUTE EVENT DURING THE NIGHT. NEEDS ATTENDED . BED LOW LOCKED.C ALL LIGHT WITHIN REACH. WILL CONT TO MONITOR AND WILL ENDORSE TO DAY SHIFT FOR RESHMA.
--- NOTE | 2017-12-07 07:30 | NUR ---
MS/RN Patient received Patient received from overnight caregiver. Salkum collar remains in place, towel placed behind head for support. Complaining of headache, will administer tylenol. Call light within reach, safety measures in place, will continue to monitor and ensure safety.
[2017-12-07] MEDS: METOPROLOL SUCCINATE 25 MG TAB.SR.24H PO SCH (07:55)
[2017-12-07] MEDS: CHOLECALCIFEROL 1,000 UNIT TABLET (VIT D3) PO SCH (07:55)
[2017-12-07] MEDS: CYANOCOBALAMIN 500 MCG TABLET PO SCH (07:55)
[2017-12-07] MEDS: MULTIVITAMIN/LUTEIN/MINERALS 1 TAB PO SCH (07:55)
[2017-12-07] MEDS: DILTIAZEM HCL CD 120 MG PO SCH (07:56)
[2017-12-07] MEDS: NEOMY SULF/BACITRAC ZN/POLY 15 GM TUBE TP SCH (07:56)
[2017-12-07 08:00] VITALS: BP_SYST 102; BP_SYST 119; BP_SYST 123; BP_SYST 132; BP_DIAS 51; BP_DIAS 57; BP_DIAS 62; BP_DIAS 66; BP_DIAS 86
--- NOTE | 2017-12-07 10:00 | NUR ---
MS/RN S/B Dr Luong Seen by Dr Luong - no new orders.
--- NOTE | 2017-12-07 10:30 | NUR ---
MS/RN S/B Dr Ramirez Seen by Dr Ramirez - awaiting completion of MRA, for discharge planning tomorrow to home with home health. Patient refusing to go to short term rehab placement.
--- NOTE | 2017-12-07 10:54 | NUR ---
MS/RN MRA Patient off floor at this time for MRA.
--- NOTE | 2017-12-07 13:30 | NUR ---
MS/RN Back from MRA Patient back in room following MRA, no results as of this time.
[2017-12-07 16:00] VITALS: BP 122/72
[2017-12-07] MEDS: PAROXETINE HCL 10 MG TABLET PO SCH (17:05)
--- NOTE | 2017-12-07 18:08 | NUR ---
MS/RN S/B Elidia Trammell Seen by ortho - patient cleared for discharge, to follow up with Dr Smith in 1-2 weeks in office. Montara collar to remain in place at all times.
--- NOTE | 2017-12-07 19:30 | NUR ---
RN NOTE; RECEIVED PT IN BED AWAKE AND ALERT. BREATHING EVENLY. NO SOB ON RA. NO C/O PAIN OR DISCOMFORT AT THIS TIME. NECK COLLAR IN PLACE. L FOREHEAD LACERATION W/ INTACT STITCHES. NO DRAINAGE. NO S/S OF INFX. NEEDS ATTENDED. BED LOW LOCKED. CALL LIGHT WITHIN REACH. WILL CONT TO MONITOR ,
[2017-12-07 20:00] VITALS: BP 139/63
[2017-12-07] MEDS: ATORVASTATIN 10 MG TABLET PO SCH (21:23)
[2017-12-07] MEDS: SENNOSIDES 8.6 MG TABLET PO SCH (21:23)
--- NOTE | 2017-12-07 21:23 | NUR ---
TYLENOL GIVEN ORDERED FOR C/O HEAD AND NECK PAIN. WILL CONT TO MONITOR,
--- NOTE | 2017-12-08 06:54 | NUR ---
RN NOTE; PT IN BED AWAKE AND ALERT. BREATHING EVENLY. NO ACUTE EVENT DURING THE NIGHT . STABLE. W/ NO C/O PAIN OR DISCOMFORT .NEEDS ATTENDED. BED LOW LOCKED. CALL LIGHT WITHIN REACH. WILL CONT TO MONITOR AND WILL ENDORSE TO AM SHIFT FOR RESHMA.
--- NOTE | 2017-12-08 07:05 | NUR ---
REPORT RECEIVED AT THE BEDSIDE. PATIENT IS RESTING COMFORTABLE IN BED. NO SOB OR DISTRESS NOTED AT THIS TIME. PATIENT REPORTS TOLERABLE PAIN. C COLLAR IN PLACE. BED IN A LOW POSITION, CALL LIGHT WITHIN PATIENT REACH. WILL CONTINUE TO MONITOR.
[2017-12-08 08:00] VITALS: BP_SYST 102; BP_SYST 117; BP_SYST 120; BP_SYST 135; BP_DIAS 53; BP_DIAS 58; BP_DIAS 60; BP_DIAS 65
[2017-12-08] MEDS: CHOLECALCIFEROL 1,000 UNIT TABLET (VIT D3) PO SCH (08:56)
[2017-12-08] MEDS: CYANOCOBALAMIN 500 MCG TABLET PO SCH (08:56)
[2017-12-08] MEDS: MULTIVITAMIN/LUTEIN/MINERALS 1 TAB PO SCH (08:56)
[2017-12-08] MEDS: NEOMY SULF/BACITRAC ZN/POLY 15 GM TUBE TP SCH (08:57)
[2017-12-08] MEDS: ACETAMINOPHEN 325 MG TABLET PO PRN ×2 (11:44→23:06)
--- NOTE | 2017-12-08 13:21 | NUR ---
DR HARRINGTON WAS ON FLOOR AROUND 1130. STATES THAT IF THE PATIENT QUALIFIES FOR ARU, THAT SHE MAY LEAVE TODAY, OTHERWISE, SHE WILL DISCHARGE HOME TOMORROW. RECEIVED CALL FROM SYLWIA IN CASE MANAGEMENT. SYLWIA STATES THAT HE HAS ALREADY MESSAGED DR HARRINGTON TO INFORM THE MD. CALLED DR HARRINGTON'S OFFICE TO OBTAIN ANY NEW ORDERS ON MEDICATIONS THAT HE SPOKE TO THE PATIENT ABOUT. WAITING FOR RETURN CALL FROM .
--- NOTE | 2017-12-08 14:50 | NUR ---
RECEIVED A CALL BACK FROM DR HARRINGTON'S OFFICE. NURSE ON LINE ASKS FOR PT CURRENT BP MEDS. INFORMED HER THE PATIENT IS TAKING TOPROLOL AND CARDIZEM AT HOME, BUT THAT BOTH OF THEM ARE CURRENTLY DISCONTINUED. NURSE STATES SHE WILL INFORM DR HARRINGTON.
[2017-12-08 16:00] VITALS: BP 130/70
[2017-12-08] MEDS: PAROXETINE HCL 10 MG TABLET PO SCH (17:23)
--- NOTE | 2017-12-08 18:42 | NUR ---
NO SIGNIFICANT CHANGES IN PATIENT CONDITION THROUGHOUT THE SHIFT. NO SOB OR DISTRESS NOTED AT THIS TIME. PATIENT REPORTS TOLERABLE PAIN. NEVER RECEIVED RETURN PHONE CALL FROM DR HARRINGTON FOR ANY NEW ORDERS. PATIENT SITTING IN CHAIR. CALL LIGHT WITHIN REACH. WILL ENDORSE FOR RESHMA.
--- NOTE | 2017-12-08 19:30 | NUR ---
MS RN NOTES RECEIVED SITTING ON BEDSIDE CHAIR,A/O X 4,BREATHING REGULAR,NOT IN ANY FORM OF DISTRESS.ABLE TO AMBULATE WITH WALKER,COLLAR BRACE IN USED.DRESSING CHANGED DONE LEFT UPPER ARM.SALINE LOCK EIGHT AC INTACT AND PATENT.FALL PRECAUTION OBSERVED,BED ON LOWEST POSITION AND LOCKED.CALL LIGHT IN REACH,NEEDS ANTICIPATED.
[2017-12-08 20:00] VITALS: BP 150/81
[2017-12-08] MEDS: ATORVASTATIN 10 MG TABLET PO SCH (21:26)
[2017-12-08] MEDS: SENNOSIDES 8.6 MG TABLET PO SCH (21:27)
--- NOTE | 2017-12-08 23:06 | NUR ---
MS RN NOTES C/O HEADACHE,TYLENOL 650MG PO GIVEN PER PATIENT REQUEST
[2017-12-09 06:47] VITALS: BP 149/88
[2017-12-09 06:49] VITALS: BP 156/76
[2017-12-09 06:50] VITALS: BP 151/82
--- NOTE | 2017-12-09 07:05 | NUR ---
MS RN OPENING NOTES RECEIVED PT FROM NIGHTSHIFT NURSE IN STABLE CONDITION. PT IS A/O X3. NO SOB OR SIGNS OF DISTRESS NOTED. BREATHING IS EVEN AND UNLABORED. PT IS RESTING COMFORTABLE IN BED. SHE DENIES ANY VERTIGO AT THIS TIME AND PAIN. CERVICAL COLLAR IN PLACE. IN ON RIGHT AC NOTED TO BE PATENT AND INTACT. NO REDNESS OR SIGNS OF INFILTRATION NOTED. BED IN LOW LOCKED POSITION, SIDE RAILS UP X2, CALL LIGHT WITHIN REACH. WILL CONTINUE TO MONITOR
--- NOTE | 2017-12-09 07:12 | NUR ---
MS RN NOTES TYLENOL EFFECTIVE FOR HEADACHE.AMBULATES TO THE TOILET WITH WALKER.NO FALL.NO INJURY.FOR D/C PLAN TODAY.ENDORSED TO SUZY TSE FOR RESHMA.
[2017-12-09 08:00] VITALS: BP 149/88
[2017-12-09] MEDS: NEOMY SULF/BACITRAC ZN/POLY 15 GM TUBE TP SCH (08:48)
[2017-12-09] MEDS: CYANOCOBALAMIN 500 MCG TABLET PO SCH (08:49)
[2017-12-09] MEDS: MULTIVITAMIN/LUTEIN/MINERALS 1 TAB PO SCH (08:49)
[2017-12-09] MEDS: CHOLECALCIFEROL 1,000 UNIT TABLET (VIT D3) PO SCH (08:50)
--- NOTE | 2017-12-09 16:30 | NUR ---
MS INTEGRATION ANALYST NOTES PT WAS DISCHARGED FROM FACILITY IN STABLE CONDITION. ALL NEEDS WERE MET DURING SHIFT AND ORDERS CARRIED OUT ACCORDINGLY. ALL DISCHARGE INSTRUCTIONS DISCUSSED WITH PT AND DAUGHTER. PT VERBALIZED FULL UNDERSTANDING OF DISCHARGE INSTRUCTIONS AND SIGNED ALL PAPERWORK. SHE LEFT WITH ALL HER BELONGINGS. IV WAS SUCCESSFULLY REMOVED WITH NO COMPLICATIONS. CERVICAL COLLAR REMAINED IN PLACE. SHE WAS SAFELY ESCORTED TO THE LOBBY BY THE WAX POT TENDER AND LEFT VIA PRIVATE VEHICLE.
== END 2017-12-09 16:25 | disposition home health service (06) | DRG 465 ==
LOC: ER 12:35 → MEDSG2 20:03
PROVIDERS: ADMIT Nurse Practitioner Primary Care; ATTEND Nurse Practitioner Primary Care
PROC: 0HQ1XZZ Repair Face Skin, External Approach (ICD-10-PCS; 2017-12-03)
PROC: 0JBF0ZZ Excision of Left Upper Arm Subcutaneous Tissue and Fascia, Open Approach (ICD-10-PCS; principal; 2017-12-06)
DX: S12.112A Nondisplaced Type II dens fracture, initial encounter for closed fracture (principal); E11.42 Type 2 diabetes mellitus with diabetic polyneuropathy; I48.0 Paroxysmal atrial fibrillation; F03.90 Unspecified dementia, unspecified severity, without behavioral disturbance, psychotic disturbance, mood disturbance, and anxiety; E03.9 Hypothyroidism, unspecified; E67.3 Hypervitaminosis D; H81.10 Benign paroxysmal vertigo, unspecified ear; W01.0XXA Fall on same level from slipping, tripping and stumbling without subsequent striking against object, initial encounter; I10 Essential (primary) hypertension; I25.10 Atherosclerotic heart disease of native coronary artery without angina pectoris; Y93.9 Activity, unspecified; Y92.009 Unspecified place in unspecified non-institutional (private) residence as the place of occurrence of the external cause; S41.112A Laceration without foreign body of left upper arm, initial encounter; X58.XXXA Exposure to other specified factors, initial encounter; Y99.9 Unspecified external cause status; K21.9 Gastro-esophageal reflux disease without esophagitis; M19.90 Unspecified osteoarthritis, unspecified site; R29.6 Repeated falls; Z88.0 Allergy status to penicillin; S80.211A Abrasion, right knee, initial encounter; S01.112A Laceration without foreign body of left eyelid and periocular area, initial encounter; M81.0 Age-related osteoporosis without current pathological fracture; I95.1 Orthostatic hypotension
CPT/HCPCS: 36415; 70450-TC; 70544-TC; 70551-TC; 71045-TC; 72125-TC; 72141-TC; 80048-TC; 85025-TC; 85730-TC; 87081-TC; 97530-TC; A4606; A6402; A6403; J3490; L0172; Z7610

== ENCOUNTER 2020-05-19 19:05 | Inpatient (IN) | payer MEDICARE ==
[~2020-05-19] VITALS: Ht 172.7 cm; Wt 69.9 kg
[~2020-05-19 19:05] MED LIST changes: -ACET-2605 PO; -ACET-868 PO; -BISA-79 GT; +CHOL100044 PO; +CYAN500T65 PO; +DILT120T14 PO; -MELA1TAB25 PO; -MIRT7.5T10 PO; -NA P133E RC; +NAPR220T66 PO; -ONDA4TAB5 PO; -PANT40TA2 PO; +PARO10TA86 PO; +SIME125T3 PO; -TRAM50TA2 PO; +UBID100C13 PO; +VIT1CAPS9 PO
[2020-05-19] MEDS ORDERED: VANCOMYCIN 1 GM VIAL ONE (19:49)
[2020-05-19] MEDS ORDERED: ACETAMINOPHEN ES 500 MG TABLET ONE (19:49)
[2020-05-19] MEDS ORDERED: IBUPROFEN 600 MG TABLET PO ONE ×2 (19:49→20:00)
--- NOTE | 2020-05-19 19:54 | NUR ---
DR LEN JAY PER DR CISNEROS.
[2020-05-19] MEDS ORDERED: VANCOMYCIN 1 GM in IV D5W 250 ML IV ONE (20:00)
[2020-05-19] MEDS ORDERED: ACETAMINOPHEN ES 500 MG TABLET PO ONE (20:00)
[2020-05-19] MEDS ORDERED: IV NS 0.9% 1,000 ML BAG IV ONE (20:00)
[2020-05-19 20:17] LABS: BASOPHILS % (AUTO) 0.3 % (0.0-2.0); HEMATOCRIT 43 % (33-45); HEMOGLOBIN 14.3 g/dL (11.5-14.8); LYMPHOCYTES # (AUTO) 0.7 /CMM (0.8-4.8); LYMPHOCYTES % (AUTO) 6.5 % (20.0-44.0); MEAN CORPUSCULAR HGB CONC 34 g/dl (31.0-36.0); MEAN CORPUSCULAR VOLUME 93 fL (82-100); MONOCYTES # (AUTO) 0.6 /CMM (0.1-1.30); MONOCYTES % (AUTO) 5.8 % (2.0-12.0); NEUTROPHILS # (AUTO) 9.2 /CMM (1.8-8.9); NEUTROPHILS % (AUTO) 87.4 % (43.0-81.0); PLATELET COUNT (AUTO) 175 /CMM (150-450); WHITE BLOOD COUNT (AUTO) 10.5 K/uL (4.3-11.0)
--- NOTE | 2020-05-19 20:17 | NUR ---
BIBDAUGHTER HAD SKIN SARCOMA SURGERY ON 05/07. PT HAS A WOUND INFECTED ON RT ANKLE AREA . C/O WEAKNESS AND EXHAUSTED. TEMP 102.9. PT AAOX4, VSS. RR EVEN & UNLABORED. DENIES CP, SOB, DIZZNESS, N/V AT THIS TIME. PLACED ON GRAVURE PRESS OPERATOR. PT SEEN & EVAL'D BY DR. CISNEROS & WILL CONT TO MONITOR.
[2020-05-19 20:39] LABS: CALCIUM, SERUM 8.7 mg/dL (8.5-10.1); CARBON DIOXIDE 24 mmol/L (21-32); CHLORIDE 100 mmol/L (98-107); CREATININE 0.8 mg/dL (0.6-1.3); GLUCOSE 143 mg/dL (74-106); POTASSIUM 3.8 mmol/L (3.5-5.1); SODIUM SERUM 134 mmol/L (136-145); UREA NITROGEN, BLOOD 10 mg/dL (7-18)
[2020-05-19 20:44] LABS: ALANINE AMINOTRANSFERASE 15 U/L (12-78); ALBUMIN 3.5 g/dL (3.4-5.0); ALKALINE PHOSPHATASE 75 U/L (46-116); ASPARTATE AMINOTRANSFERASE 15 U/L (15-37); BILIRUBIN,DIRECT 0.2 mg/dL (0.0-0.2); TOTAL PROTEIN, SERUM 7.2 g/dL (6.4-8.2)
--- NOTE | 2020-05-19 21:20 | NUR ---
REPORT GIVEN TO CARMENCITA PALMER FOR RESHMA.
--- NOTE | 2020-05-19 21:20 | NUR ---
MS RN NOTES -- RECEIVED REPORT FROM CARMENCITA HUSSEIN; AWAITING FOR PATIENT TO ARRIVE ON UNIT
[2020-05-19 21:30] VITALS: BP 133/65
--- NOTE | 2020-05-19 21:30 | NUR ---
MS RN NOTES PATIENT ARRIVED ON UNIT VIA GURNEY, ACCOMPANIED BY ER STAFF; PATIENT AWAKE, A/OX3, BREATHING EVEN AND UNLABORED; NO SOB NOTED; PATIENT TOLERATING ROOM AIR WELL; PATIENT AMBULATORY WITH ASSISTIVE DEVICE (WALKER), WITH STEADY GATE; MEDICAL HISTORY OBTAINED FROM PATIENT; SKIN ASSESSMENT COMPLETED; R WRIST # 20 INTACT AND PATENT, FLUSHING WELL; NO S/S OF REDNESS OR INFILTRATION NOTED; PATIENT ORIENTED TO UNIT AND TO STAFF; SAFETY PRECAUTIONS IMPLEMENTED; BED LOCKED IN LOW POSITION; SIDE RAILSX2; CALL LIGHT WITHIN REACH; WILL CONT TO MONITOR
[2020-05-19 21:56] VITALS: BP 133/65
--- NOTE | 2020-05-20 05:45 | NUR ---
MS RN NOTES PATIENT COMPLAINING OF FEVER/CHILLS; PATIENT REPORTED SHE FEELS COLD AND WARM; TEMPERATURE CHECKED, PATIENT CURRENT TEMPERATURE 100.6F ORALLY; TYLENOL ADMINISTERED PER MD ORDER; WILL CONT TO MONITOR
[2020-05-20] MEDS: ACETAMINOPHEN 325 MG TABLET PO PRN ×2 (05:50→11:56)
--- NOTE | 2020-05-20 06:36 | NUR ---
MS RN CLOSING NOTES PATIENT RESTING IN BED COMFORTABLY; A/OX4, BREATHING EVEN AND UNLABORED; NO SOB NOTED; TOLERATING ROOM AIR WELL; SLIGHT COUGH NOTED; PATIENT COMPLAINT OF FEVER/CHILLS, TYLENOL ADMINISTERED ORDERED; WILL INFORM DAY SHIFT; PATIENT ABLE TO MAKE NEEDS KNOWN; R WRIST # 20 H/L INTACT AND PATENT, FLUSHING WELL; ALL NEEDS RENDERED; SAFETY PRECAUTIONS IMPLEMENTED; BED LOCKED IN LOW POSITION; BED ALARM ON, WALKER NEAR BEDSIDE; SIDE RAILSX2; CALL LIGHT WITHIN EASY REACH; WILL ENDORSE RESHMA TO ONCOMING SHIFT
[2020-05-20 08:00] VITALS: BP 136/64
[2020-05-20] MEDS: METOPROLOL TARTRATE 25 MG TABLET PO SCH (08:30)
[2020-05-20] MEDS: AMLODIPINE BESYLATE 5 MG TABLET PO SCH (08:30)
[2020-05-20] MEDS: ENOXAPARIN SODIUM 40 MG/0.4 ML DISP.SYRIN SQ SCH (08:34)
[2020-05-20] MEDS ORDERED: SENNOSIDES/DOCUSATE SODIUM 1 TAB TABLET PO SCH (09:00)
[2020-05-20] MEDS ORDERED: BENAZEPRIL HCL 5 MG TABLET PO SCH (09:00)
--- NOTE | 2020-05-20 10:39 | NUR ---
WOUND CARE CONSULT: PT PRESENTS WITH DRY INTACT STERI STRIPS TO LEFT SHOULDER AREA AND SKIN GRAFT TO RT LOWER LEG WITH SURROUNDING REDNESS AND EDEMA, PRESENT ON ADMISSION. PT STATES THAT SHE HAD SKIN GRAFT SURGERY BY DR JASMINE AT [facility] ON 05/07/20. RECOMMENDATIONS MADE FOR PROTECTION OF GRAFT AND SKIN PROTECTION. DISCUSSED WITH NURSING STAFF. RN TO DISCUSS IF SURGICAL CONSULT NEEDED WITH PMD. NO DRAINAGE OR TENDERNESS NOTED BUT LOWER LEG IS RED AND SWOLLEN. WILL SEE PRN. IN AGREEMENT WITH PLAN OF CARE.
[2020-05-20] MEDS: LINEZOLID RTU BAG 600 MG in PREMIX 1 EA IV SCH ×2 (11:27→23:00)
--- NOTE | 2020-05-20 11:56 | NUR ---
MS RN NOTES PATIENT COMPLAINED OF HEADACHE, TEMPERATURE CHECKED NOTED TO BE 101.2, TYLENOL ADMINISTERED. WILL RECHECK IN [address] HARRINGTON WAITING FOR CALL BACK.
--- NOTE | 2020-05-20 12:30 | NUR ---
MS RN NOTES RECHECKED TEMP NOTED 99.7. WILL CONTINUE TO MONITOR.
[2020-05-20] MEDS ORDERED: BENA10TA74 PO (13:44)
[2020-05-20] MEDS ORDERED: AMLO5TAB9 PO (13:44)
--- NOTE | 2020-05-20 14:45 | NUR ---
MS RN NOTES PATIENT WAS SEEN BY DR. HARRINGTON VIA TELE MEDICINE. PATIENT NOTED COUGHING AND WITH FEVER. COVID PCR TEST ORDERS AND REQUESTED TO BE TRANSFERRED TO COVID FLOOR TO RULE OUT COVID. REQUESTED BED FROM CONTINUOUS MINING MACHINE LODE MINER WAITING FOR A BED.
--- NOTE | 2020-05-20 16:00 | NUR ---
MS RN NOTES PATIENT TRANSFERRED TO 1ST FLOOR ROOM 102 FOR RULE OUT COVID, UNTIL COVID TEST HAS RESULTED. PATIENT IN STABLE CONDITION, BEDSIDE REPORT CONTINUOUS LOFT OPERATOR TO RN.
[2020-05-20 16:25] VITALS: BP 128/76
--- NOTE | 2020-05-20 16:59 | NUR ---
Spoke with daughter Benita [phone], patient is alert and pleasant,lives locally with her daughter in a single level home. Patient ambulates with a walker,was on homehealth care in the past and does not remember the name of the company. Current dc plan is to return home, will benefit from homehealth for wound care. Addendum: 05/20/20 at 1659 by MARCIA TRIPP RN Amended: Links added.
[2020-05-20 17:53] VITALS: BP 128/76
--- NOTE | 2020-05-20 19:20 | NUR ---
RN OPENING NOTES: Rec'd pt in bed, A&Ox3. On isolation for R/O Covid. IV site on RW #20 patent and flushed. Dressing c/d/i Pt ambulatory to restroom w/ walker. Safety measures in place. Will continue to monitor.
[2020-05-20 20:00] VITALS: BP 158/71
[2020-05-20] MEDS: ATORVASTATIN 10 MG TABLET PO SCH (21:36)
--- NOTE | 2020-05-20 21:57 | NUR ---
RN NOTES: 2134: Rec'd call from Carlitos in lab. Pt's blood cx results - gram variable bacilli. 2154: Called Dr. Ramirez's psychologist educational and spoke w/ Dr. Venkata Hernandez to relay results. NNO at this time.
--- NOTE | 2020-05-20 23:56 | NUR ---
RN NOTE: Pt's IV site noted to be dislodged, no infiltration noted. Removed IV site and applied pressure. Started new IV site on left hand #20, patent and flushed. Dressing c/d/i.
[2020-05-21 04:00] VITALS: BP 150/71
--- NOTE | 2020-05-21 06:47 | NUR ---
RN CLOSING NOTES: Pt resting in bed. No acute changes noted throughout shift. On RA. No SOB or resp distress noted throughout shift. LH #20 with TKO infusing. All meds administered as ordered. Refused bed bath and linen changes. Safety measures in place. Will endorse to AM nurse for RESHMA.
--- NOTE | 2020-05-21 07:30 | NUR ---
RN OPENING NOTES Received patient in bed, A/O x4, on Room Air, tolerating well, no SOB or resp distress noted ; SPO2 is 98% at this time, ambulatory, denies pain or discomfort, IV line on hand noted, intact and patent, Safety measures implement, bed in lowest position , call light in reach, will cont to monitor
[2020-05-21] MEDS: ENOXAPARIN SODIUM 40 MG/0.4 ML DISP.SYRIN SQ SCH (08:57)
[2020-05-21] MEDS: SENNOSIDES/DOCUSATE SODIUM 1 TAB TABLET PO SCH (08:58)
[2020-05-21] MEDS: METOPROLOL TARTRATE 25 MG TABLET PO SCH (08:59)
[2020-05-21] MEDS: AMLODIPINE BESYLATE 5 MG TABLET PO SCH (08:59)
[2020-05-21] MEDS: LINEZOLID RTU BAG 600 MG in PREMIX 1 EA IV SCH (11:04)
[2020-05-21 12:00] VITALS: BP 138/86
[2020-05-21] MEDS: CIPROFLOXACIN IV RTU 400 MG in PREMIX 1 EA IV SCH ×2 (13:38→21:11)
--- NOTE | 2020-05-21 17:51 | NUR ---
FOLLOWUP COVID PCR STILL PENDING.
--- NOTE | 2020-05-21 18:54 | NUR ---
RN CLOSING NOTES PATIENT REMAINS IN BED, TOLERATING WELL, ALL MEDS ARE GIVEN, COMFORT NEEDS ARE MET, IV LINE PATENT AND FLUSHED, SAFETY MEASURES IMPLEMENTED, WILL ENDORSE TO PM SHIFT RN FOR Addendum: 05/21/20 at 1856 by Macarena Ellsworth RN RN CLOSING NOTES PATIENT REMAINS IN BED, TOLERATING WELL, ALL MEDS ARE GIVEN, COMFORT NEEDS ARE MET, IV LINE PATENT AND FLUSHED, SAFETY MEASURES IMPLEMENTED, WILL ENDORSE TO PM SHIFT RN FOR RESHMA
--- NOTE | 2020-05-21 18:56 | NUR ---
IV LINE ON L FA STARTED G24, INTACT AND PATENT
--- NOTE | 2020-05-21 19:20 | NUR ---
RN OPENING NOTES: Rec'd pt in bed, awake A&Ox4. On isolation for R/O Covid. On room air, tolerating well. No SOB or resp distress noted. Pt able to ambulate w/ walker. LAC #24 patent and flushed. TKO infusing. Dressing c/d/i. Safety measures in place. Will continue to monitor.
[2020-05-21 20:00] VITALS: BP 144/58
[2020-05-21] MEDS: ATORVASTATIN 10 MG TABLET PO SCH (21:11)
--- NOTE | 2020-05-21 21:47 | NUR ---
RN NOTES: Offered pt bed bath and linen change. Pt stated that she will let us know if and when she would like it. Wishes noted.
[2020-05-22 04:00] VITALS: BP 142/76
[2020-05-22] MEDS: CIPROFLOXACIN IV RTU 400 MG in PREMIX 1 EA IV SCH ×3 (04:30→21:08)
--- NOTE | 2020-05-22 06:53 | NUR ---
RN CLOSING NOTES: Pt remained stable throughout shift. On room air, tolerating well. No SOB or resp distress noted throughout shift. No acute changes noted throughout shift. LAC #24 patent with TKO infusing. Isolation precautions in place. All meds administered as ordered. Kept clean/dry. Safety measures in place. Will endorse to AM nurse for RESHMA.
--- NOTE | 2020-05-22 07:30 | NUR ---
RN OPENING NOTES Received patient in bed, A/Ox4, on room air, tolerating well, no SOB or resp distress noted, SPO2 at 100%, Patient is ambulatory and able to call for assistance with bathroom, IV line on L AC noted, intact and patent. Safety measures implemented, call light in reach, will continue to monitor
--- NOTE | 2020-05-22 08:30 | NUR ---
Spoke with Dr Ramirez on through Facetime, per Dr stone desean decrease Senokot to 2 pills per day, and hold Lovenox
--- NOTE | 2020-05-22 08:45 | NUR ---
Endorse patient to CARMENCITA Yañez for RESHMA.
--- NOTE | 2020-05-22 08:50 | NUR ---
GIS ENGINEER Received patient from Macarena (RN) alert and awake x4. Pt in bed, respiration is even and easy with O2 saturation of 94%. Independent with bowel and bladder habits. IV site on left AC intact and infusing well. Will keep safe and comfortable. Will continue to monitor.
--- NOTE | 2020-05-22 08:53 | NUR ---
WOUND CARE: RECEIVED WORD FROM RN THAT DR HARRINGTON REQUESTS SURGICAL CONSULT FOR RT LOWER LEG SKIN GRAFT. DR ABERNATHY NOTIFIED OF CONSULT REQUEST. DISCUSSED WITH NURSING STAFF.
[2020-05-22] MEDS: ENOXAPARIN SODIUM 40 MG/0.4 ML DISP.SYRIN SQ SCH (09:00)
[2020-05-22] MEDS: METOPROLOL TARTRATE 25 MG TABLET PO SCH (09:22)
[2020-05-22] MEDS: AMLODIPINE BESYLATE 5 MG TABLET PO SCH (09:22)
[2020-05-22] MEDS: SENNOSIDES/DOCUSATE SODIUM 1 TAB TABLET PO SCH (09:24)
[2020-05-22 12:00] VITALS: BP 135/61
--- NOTE | 2020-05-22 13:32 | NUR ---
HEAD CHARRER NOTES Pt remains alert and oriented x 4. Respiration is even and easy with no shortness of breath. No acute distress noted. Dressing change done on right lower leg wound. Wound bed appears dark red in color with slight to moderate serosangiunous discharge, No odor noted. Covered with oil emulsion dressing, and covered with mepilex then secured with burn net as ordered. Pt tolerated well. Will continue to monitor for rest of shift.
--- NOTE | 2020-05-22 18:31 | NUR ---
MORTGAGE FIELD INSPECTOR CLOSING NOTES Pt remains alert / oriented x4. No acute distress noted. Respiration is even and easy with no shortness of breath. No complain of pain or discomfort. IV site on left AC intact and infusing well. All due medication given as ordered. Kept safe and comfortable at all times. Call light left within reach for easy access.
[2020-05-22 20:00] VITALS: BP 156/64
[2020-05-22] MEDS: ATORVASTATIN 10 MG TABLET PO SCH (21:08)
[2020-05-22] MEDS: PAROXETINE HCL 10 MG TABLET PO SCH (21:09)
[2020-05-23 04:00] VITALS: BP 143/70
[2020-05-23] MEDS: CIPROFLOXACIN IV RTU 400 MG in PREMIX 1 EA IV SCH (05:39)
[2020-05-23] MEDS: SENNOSIDES/DOCUSATE SODIUM 1 TAB TABLET PO SCH (08:11)
[2020-05-23] MEDS: ENOXAPARIN SODIUM 40 MG/0.4 ML DISP.SYRIN SQ SCH (08:11)
[2020-05-23] MEDS: AMLODIPINE BESYLATE 5 MG TABLET PO SCH (08:12)
[2020-05-23] MEDS: METOPROLOL TARTRATE 25 MG TABLET PO SCH (08:12)
--- NOTE | 2020-05-23 08:15 | NUR ---
MARY WARDROBE ATTENDANT RN OPENING NOTES RECEIVED PT IS IN BED RESTING. ALERT AND ORIENTED X4. PT IS ON RA SAT IN HER HIGH 90'S. AMBULATORY WITH BATHROOM PRIVILEGES . LAC #20 IS RUNNING WELL AND INTACT TKO IS RUNNING.ALL LABS WITHIN NORMAL LIMITS. SAFETY MEASUREMENTS ARE IMPLEMENTED . BED IS IN THE LOWEST POSITION AND LOCKED AND RAILS ARE UP X2. WILL CONTINUE TO MONITOR.
[2020-05-23 12:00] VITALS: BP 154/72
--- NOTE | 2020-05-23 13:00 | NUR ---
MARY RN NOTES PT IS READY TO BE TRANSFERRED TO [facility] SURGE TO 202. GAVE REPORT TO SIMRAN . PT VS WNL AND PT IS COVID NEGATIVE AND STABLE TO BE TRANSFERRED FOR RESHMA. PT IS TRANSFERRED IN SAFETY MATTER WITH WHEELCHAIR AND ALL BELONGINGS WITH HER WAS CHECKED.
[2020-05-23] MEDS: CIPROFLOXACIN HCL 250 MG TABLET PO SCH ×2 (13:15→21:14)
[2020-05-23 13:45] VITALS: BP 145/76
--- NOTE | 2020-05-23 13:45 | NUR ---
MS/RN - Notes Received patient from MS1, A/O x 4, denies pain, stable on room air, saline lock on the LFA 24 is patent and intact. Skin assessment done, noted with right ankle wound, left neck/chest skin graft donor site, refused pictures to be taken. All belongings accounted, room orientation given. Patient signed the consent for Right ankle excisional wound debridement. All needs attended. Will continue with current medical management.
[2020-05-23 14:18] LABS: BASOPHILS # (AUTO) 0.1 /CMM (0.0-0.2); BASOPHILS % (AUTO) 0.9 % (0.0-2.0); EOSINOPHILS % (AUTO) 4.3 % (0.0-6.0); HEMATOCRIT 44 % (33-45); HEMOGLOBIN 14.3 g/dL (11.5-14.8); LYMPHOCYTES # (AUTO) 1.4 /CMM (0.8-4.8); LYMPHOCYTES % (AUTO) 21.9 % (20.0-44.0); MEAN CORPUSCULAR HGB CONC 33 g/dl (31.0-36.0); MEAN CORPUSCULAR VOLUME 94 fL (82-100); MONOCYTES # (AUTO) 0.5 /CMM (0.1-1.30); MONOCYTES % (AUTO) 7.7 % (2.0-12.0); NEUTROPHILS % (AUTO) 65.2 % (43.0-81.0); PLATELET COUNT (AUTO) 208 /CMM (150-450); RED BLOOD CELL COUNT(AUTO) 4.69 MIL/uL (4.0-5.2); WHITE BLOOD COUNT (AUTO) 6.2 K/uL (4.3-11.0)
--- NOTE | 2020-05-23 15:00 | NUR ---
MS/RN - MD Order Dr. Ramirez made aware that patient is requesting for cough medication. MD with order to give honey one teaspoon orally every four hours PRN.
[2020-05-23 16:00] VITALS: BP 130/61
--- NOTE | 2020-05-23 18:31 | NUR ---
MS/RN - End of shift summary No significant change in condition seen, afebrile, no c/o pain, stable on room air, scheduled for right ankle excisional wound debridement tomorrow. Fall and aspiration precautions maintained. Will continue with current plan of care.
--- NOTE | 2020-05-23 19:25 | NUR ---
FACILITY COORDINATOR: RECEIVED REPORT FORM SIMRAN TSE. MET WITH PT AT BED SIDE, PT CURRENTLY BRUSHING HER TEETH, PT AMBULATES USING FWW. PT AMBULATES WITH STEADY GAIT. IV ACCESS PATENT AND FLUSHING WELL, ON HL. DISCUSSED PLAN OF CARE TO PT. PT FOR RIGHT ANKLE WOUND DEBRIDEMENT TOMORROW AM, CONSENT SIGNED BY PT. ARYAO Edwin NG. SAFETY PRECAUTIONS FOR FALL INITIATED, CALL LIGHT IN REACH, WILL CONTINUE MONITORING PT.
[2020-05-23 20:00] VITALS: BP 145/78
[2020-05-23] MEDS: ATORVASTATIN 10 MG TABLET PO SCH (21:14)
[2020-05-23] MEDS: PAROXETINE HCL 10 MG TABLET PO SCH (21:14)
--- NOTE | 2020-05-23 22:15 | NUR ---
RN NOTES: REMIND PT ABOUT BEING NPO P MN, CHECKLIST COMPLETED PT ANSWERED ALL QUESTION. RESTARTED NEW IV ACCESS ON RIGHT HAND USING G 20 IN PREPARATION FOR DEBRIDEMENT IN AM PT ONLY HAVE LEFT FA G 24. GOOD BLOOD RETURN NOTED, ABLE TO FLUSH WELL WITH 10CC NORMAL SALINE, TEGADERM APPLIED, APPROPRIATE LABELS ATTACHED. PLACED ON HL.
--- NOTE | 2020-05-23 22:24 | NUR ---
PRN HONEY: HEARD PT COUGHING INTERMITTENTLY, DRY COUGH, OFFERED HONEY. PRN 1TSP HONEY ADMINISTERED TO PT AT THIS TIME TO HELP FOR COUGHING.
--- NOTE | 2020-05-23 23:15 | NUR ---
rn notes: pt sound asleep, respirations even and unlabored. safety precautions for fall engaged.
[2020-05-24 04:17] LABS: BASOPHILS # (AUTO) 0.1 /CMM (0.0-0.2); EOSINOPHILS % (AUTO) 4.6 % (0.0-6.0); HEMATOCRIT 42 % (33-45); HEMOGLOBIN 13.5 g/dL (11.5-14.8); LYMPHOCYTES # (AUTO) 1.8 /CMM (0.8-4.8); LYMPHOCYTES % (AUTO) 28.9 % (20.0-44.0); MEAN CORPUSCULAR HGB CONC 33 g/dl (31.0-36.0); MEAN CORPUSCULAR VOLUME 94 fL (82-100); MONOCYTES # (AUTO) 0.6 /CMM (0.1-1.30); MONOCYTES % (AUTO) 9.2 % (2.0-12.0); NEUTROPHILS # (AUTO) 3.5 /CMM (1.8-8.9); NEUTROPHILS % (AUTO) 56.3 % (43.0-81.0); PLATELET COUNT (AUTO) 188 /CMM (150-450); RED BLOOD CELL COUNT(AUTO) 4.43 MIL/uL (4.0-5.2); WHITE BLOOD COUNT (AUTO) 6.2 K/uL (4.3-11.0)
[2020-05-24 04:25] LABS: CALCIUM, SERUM 8.7 mg/dL (8.5-10.1); CARBON DIOXIDE 29 mmol/L (21-32); CHLORIDE 105 mmol/L (98-107); CREATININE 0.8 mg/dL (0.6-1.3); GLUCOSE 111 mg/dL (74-106); POTASSIUM 3.9 mmol/L (3.5-5.1); SODIUM SERUM 139 mmol/L (136-145); UREA NITROGEN, BLOOD 15 mg/dL (7-18)
--- NOTE | 2020-05-24 07:03 | NUR ---
End of shift report: Pt remains a/o x4, on ra respirations even and unlabored. Iv access remains patent and flushing well, on hl, no s/s of iv infiltration noted. Pt remains npo. Ble kept offloaded on pillows. Dressing remains c/d/I, no active bleeding noted on right ankle wound and neck donor site. PLAN OF CARE: For Right ankle excisional wound debridement today, consent secured and signed by pt, checklist completed. Safety precautions for fall remains engaged, call light in reach, will endorse to day rn for continuity of care.
--- NOTE | 2020-05-24 07:10 | NUR ---
RN OPENING NOTES RECEIVED PATIENT IN BED RESTING. NOT IN ANY FORM OF DISTRESS. NO SOB. DENIED PAIN OR DISCOMFORT AT THIS TIME. IV ACCESS INTACT AND PATENT. KEPT PATIENT SAFE AND COMFORTABLE. BED IN LOW/LOCKED POSITION, SIDERAILS UPX2, LATONYA LIGHT IN REACH. WILL CONT TO MONITOR ACCORDINGLY.
[2020-05-24 08:20] VITALS: BP 142/68
[2020-05-24] MEDS: AMLODIPINE BESYLATE 5 MG TABLET PO SCH (08:25)
[2020-05-24] MEDS: CIPROFLOXACIN HCL 250 MG TABLET PO SCH ×2 (08:25→21:05)
[2020-05-24] MEDS: METOPROLOL TARTRATE 25 MG TABLET PO SCH (08:26)
[2020-05-24] MEDS: SENNOSIDES/DOCUSATE SODIUM 1 TAB TABLET PO SCH (09:05)
--- NOTE | 2020-05-24 13:30 | NUR ---
WOUND DEBRIDEMENT DONE BY DR PRINGLE. PATIENT TOLERATED WELL. PER MD, PATIENT NEEDS HOMEHEALTH FOR WOUND CARE DRESSING CHANGE ON DISCHARGE. WILL INFORM DR HARRINGTON.
[2020-05-24] MEDS: ACETAMINOPHEN 325 MG TABLET PO PRN (15:12)
--- NOTE | 2020-05-24 16:02 | NUR ---
DR HARRINGTON CALLED (FACETIMED) THE PATIENT. PER MD, HE'LL DISCHARGE THE PATIENT TOMORROW MORNING WITH HOME MEDS CONTINUED. INFORMED DR HARRINGTON REGARDING THE HOMEHEALTH SERVICE THE PATIENT NEED FOR HER ANKLE WOUND DRESSING CHANGE. PER DR HARRINGTON, HE'LL TAKE CARE OF IT.
[2020-05-24] MEDS ORDERED: METOPROLOL SUCCINATE 25 MG TAB.SR.24H PO SCH (17:00)
[2020-05-24 17:27] VITALS: BP 137/74
--- NOTE | 2020-05-24 18:35 | NUR ---
RN CLOSING NOTES PATIENT IN STABLE CONDITION. ALL NEEDS ATTENDED AND PROVIDED. ALL DUE MEDICATIONS GIVEN ORDERED. KEPT PATIENT SAFE AND COMFORTABLE. BED IN LOW/LOCKED, POSITON. SIDERAILS UPX2, CALL LIGHT IN REACH. WILL ENDORSE TO NIGHT RN FOR RESHMA.
[2020-05-24 20:00] VITALS: BP 123/71
--- NOTE | 2020-05-24 20:03 | NUR ---
WOODS OVERSEER: RECEIVED REPORT FROM YARELIS TSE AT 1910. MET WITH PT AT BEDSIDE, PLEASANT A/O X4 ON RA RESPIRATIONS EVEN AND UNLABORED. DENIES ANY PAIN OR DISCOMFORT AT THIS TIME. S/P RIGHT ANKLE WOUND DEBRIDEMENT 05/[address] PRINGLE. DRESSING C/D/I, NO ACTIVE BLEEDING NOTED. IV ACCESS PATENT AND FLUSHING WELL, ON HL. PT CONTINENT, AMBULATORY USES FWW. DISCUSSED PLAN OF CARE TO PT, PT FOR DC IN AM PER DR HARRINGTON. PER DAY CARMENCITA SANTOYO, ACCORDING TO CONVERSATION WITH DR LEN MD WILL TAKE CARE OF PT'S PRESCRIPTION, CALLING CASE MANAGEMENT AND ARRANGING HOME HEALTH. SAFETY PRECAUTIONS FOR FALL INITIATED, CALL LIGHT IN REACH, WILL CONTINUE MONITORING PT.
[2020-05-24] MEDS: ATORVASTATIN 10 MG TABLET PO SCH (21:05)
[2020-05-24] MEDS: PAROXETINE HCL 10 MG TABLET PO SCH (21:05)
--- NOTE | 2020-05-25 07:06 | NUR ---
End of shift report: Dressing on right ankle remains c/d/I, no active bleeding noted. Pt denies any pain or discomfort throughout the shift. Iv access remains patent and flushing well, on hl, no s/s of iv infiltration noted. Ble kept offloaded on pillows. Pt for dc in am, home/self care/home health to be arrange by and jayce. vs remains stable, needs attended. Safety precautions for fall remains engaged, call light in reach, will endorse to day rn for continuity of care.
[2020-05-25 08:00] VITALS: BP 132/91
--- NOTE | 2020-05-25 08:00 | NUR ---
MS RN AM NOTES RECEIVED PT AT BEDSIDE, PLEASANT A/O X4 ON RA RESPIRATIONS EVEN AND UNLABORED. DENIES ANY PAIN OR DISCOMFORT AT THIS TIME. S/P RIGHT ANKLE WOUND DEBRIDEMENT 05/[address] PRINGLE. DRESSING C/D/I, NO ACTIVE BLEEDING NOTED. IV ACCESS PATENT AND FLUSHING WELL, ON HL. PT IS CONTINENT WITH BRP USING FWW, AMBULATORY USES FWW. DISCUSSED PLAN OF CARE .FOR DC IN AM PER DR HARRINGTON. PER CARMENCITA GOVEA VIA CONVERSATION WITH DR LEN MD WILL TAKE CARE OF PT'S PRESCRIPTION, CALLING CASE MANAGEMENT AND ARRANGING HOME HEALTH. SAFETY PRECAUTIONS FOR FALL INITIATED, CALL LIGHT IN REACH, WILL CONTINUE MONITORING PT.
[2020-05-25] MEDS: SENNOSIDES/DOCUSATE SODIUM 1 TAB TABLET PO SCH (09:14)
[2020-05-25 09:15] VITALS: BP 132/91
[2020-05-25] MEDS: AMLODIPINE BESYLATE 5 MG TABLET PO SCH (09:15)
[2020-05-25] MEDS: CIPROFLOXACIN HCL 250 MG TABLET PO SCH (09:19)
--- NOTE | 2020-05-25 13:30 | NUR ---
DISCHARGED PT HOME WITH HOME HEALTH VIA PRIVATE CAR WITH STABLE V/S. PICKED UP BY HER DAUGHTER, SOUMYA.IV H/L REMOVED TO RT HAND WITH NO BLEEDING,REDNESS OR SWELLING NOTED ON THE SITE. DENIES ANY PAIN OR DISTRESS AND WAS IN A MEJIA TO GO HOME.PRESCRIPTION WERE CALLED IN TO [facility] IN [place] BY DR HARRINGTON. INFORMED PT THAT OUR IRON LAUNDER OPERATOR,HIRA WILL CALL HER FOR THE HOME HEALTH ARRANGED SINCE PT IS IN A MEJIA TO GO HOME.
== END 2020-05-25 13:30 | disposition home health service (06) | DRG 901 ==
LOC: ER 19:08 → MEDSG2 21:19 → TELE2 05-20 15:23 → TELE1 05-20 15:46 → MEDSG1 05-20 16:12 → MEDSG2 05-23 12:33
PROVIDERS: ADMIT Internal Medicine; ATTEND Internal Medicine
PROC: 0JBQ0ZZ Excision of Right Foot Subcutaneous Tissue and Fascia, Open Approach (ICD-10-PCS; principal; 2020-05-24)
DX: T86.822 Skin graft (allograft) (autograft) infection (principal); A41.59 Other Gram-negative sepsis; L03.115 Cellulitis of right lower limb; T81.44XA Sepsis following a procedure, initial encounter; I10 Essential (primary) hypertension; K21.9 Gastro-esophageal reflux disease without esophagitis; E03.9 Hypothyroidism, unspecified; I48.0 Paroxysmal atrial fibrillation; F03.90 Unspecified dementia, unspecified severity, without behavioral disturbance, psychotic disturbance, mood disturbance, and anxiety; Y83.2 Surgical operation with anastomosis, bypass or graft as the cause of abnormal reaction of the patient, or of later complication, without mention of misadventure at the time of the procedure; B96.1 Klebsiella pneumoniae [K. pneumoniae] as the cause of diseases classified elsewhere; B96.20 Unspecified Escherichia coli [E. coli] as the cause of diseases classified elsewhere; M81.0 Age-related osteoporosis without current pathological fracture; I87.2 Venous insufficiency (chronic) (peripheral); Y92.009 Unspecified place in unspecified non-institutional (private) residence as the place of occurrence of the external cause; Z85.828 Personal history of other malignant neoplasm of skin; G62.9 Polyneuropathy, unspecified
CPT/HCPCS: 36415; 71045-TC; 73610-TC; 80048-TC; 80076-TC; 83605-TC; 84484-TC; 85025-TC; 85610-TC; 85730-TC; 86850-TC; 87040-TC; 87070-TC; 87081-TC; 87186-TC; 93971-TC; 97110-TC; 97116-TC; 97530-TC; 97535-TC; A4216; A6253; C9803-CS; G0378; J0744; J1650; J2020; J3370; J7030; J7060; U0003-CS